=== PATIENT | male | born 1950 | race Caucasian/White ===

== ENCOUNTER 2024-09-25 12:32 | Emergency (ER) | payer MEDICARE, OTHER, SELFPAY ==
[2024-09-25 12:33] VITALS: BP 171/91
[2024-09-25 13:58] VITALS: BMI 31.8
[2024-09-25 14:10] LABS: Hematocrit 35.2 % (39.0-52.0); Hemoglobin 12.3 g/dL (13.0-18.0); Mean Corp Hgb Conc. 34.9 g/dL (33.0-37.0); Mean Corpuscular Volume 90.7 fL (80.0-94.0); Nucleated Red Blood Cells % 0 % (-); Platelet Count 142 10^3/uL (130-400); Red Cell Dist. Width 12.9 % (11.5-14.5)
[2024-09-25 14:16] LABS: ALT (SGPT) 23 U/L (0-50); AST (SGOT) 22 U/L (17-59); Albumin 4.4 g/dl (3.5-5.0); Alkaline Phosphatase 59 U/L (38-126); Blood Urea Nitrogen 24 mg/dl (9-20); Calcium 9.0 mg/dl (8.4-10.2); Carbon Dioxide 25 mmol/L (22-30); Chloride 106 mmol/L (98-107); Estimated Creatinine Clearance 81 ml/min; Glucose 109 mg/dl (70-99); Potassium 4.0 mmol/L (3.5-5.1); Sodium 137 mmol/L (135-145); Total Protein 6.9 g/dl (6.3-8.2); eGFR > 60.00
--- NOTE | 2024-09-25 15:37 | ED.GENMED ---
History of Present Illness
General
Chief Complaint: Abnormal Lab Value
Time Seen by Provider: 09/25/24 12:53
History of Present Illness
History of Present Illness:
74-year-old male with history of aortic aneurysm presenting to the emergency department for concern of abnormal carotid ultrasound. Patient had outpatient ultrasound completed of his carotids which showed noncalcified clot on the right side of the
carotid artery. Patient was instructed to immediately come to the hospital. He notes that the study was ordered because in June he had a routine eye exam which showed a left central retinal vein occlusion. Patient denies any visual changes. He
denies any neurologic symptoms, such as weakness or numbness to extremities. Denies chest pain or difficulty breathing.
Phy Exam
Physical Exam
Physical Exam:
General: Well-appearing, no clinical signs of dehydration
HEENT: protecting airway
Neck: appears supple
CV: Normal heart rate, regular rhythm, no evidence of cyanosis
Resp: No accessory muscle use, no increased work of breathing, lungs clear to auscultation bilaterally
Abd: No distention
Extremities: No deformities, no swelling
Neuro: alert, no focal neurologic deficit
: deferred
Rectal: deferred
Psych: Normal affect
Skin: Intact
Course
Orders/Labs/Results
Orders:
Orders
09/25/24 13:44
CT Head & Neck Angio W/wo IV Urgent
Comment:
Reason For Exam: outpt vascular US - abnormal clot on right
09/25/24 13:55
Complete Blood Count/With Diff Urgent
Comprehensive Metabolic Panel Urgent
Abnormal Lab Results
09/25/24
13:55
WBC 3.9 L 10^3/uL
(4.8-10.8)
RBC 3.88 L 10^6/uL
(4.70-6.10)
Hgb 12.3 L g/dL
(13.0-18.0)
Hct 35.2 L %
(39.0-52.0)
MCH 31.7 H pg
(27.0-31.0)
MPV 11.1 H fL
(7.4-10.4)
Absolute Lymphs (auto) 0.7 L 10^3/uL
(1.2-3.4)
Immature Gran % 0.8 H %
(0-0.5)
Lymphocytes % 19.0 L %
(20.5-51.1)
Monocytes % 10.8 H %
(1.7-9.3)
BUN 24 H mg/dl
(9-20)
Glucose 109 H mg/dl
(70-99)
Total Bilirubin 1.8 H mg/dl
(0.2-1.3)
09/25/24 13:55
09/25/24 13:55
Vital Signs
Initial and Last Documented VS:
Initial Vital Signs
Temp Pulse Resp BP Pulse Ox
98.1 F 61 18 171/91 100
09/25/24 12:33 09/25/24 12:33 09/25/24 12:33 09/25/24 12:33 09/25/24 12:33
Last Documented Vital Signs
Temp Pulse Resp BP Pulse Ox
98.1 F 50 12 171/91 100
09/25/24 12:33 09/25/24 16:15 09/25/24 16:00 09/25/24 12:33 09/25/24 16:15
MDM/Problems Addressed
MDM/Problems Addressed:
74-year-old male presenting to the emergency department with abnormal outpatient carotid ultrasound. Vital signs significant for high blood pressure.
On exam patient resting comfortably, no acute distress. Patient without any present acute complaints. Notes outpatient ultrasound of his thighs which showed a left central retinal vein occlusion. However patient without any ocular symptoms. He
arrives with report of ultrasound carotid bilateral, which shows no diagnostic evidence of 50% or greater stenosis, however there is mention of moderate noncalcified clot in the bulb and bifurcation on the right side with additional clot seen in the
proximal to mid common carotid artery. Patient was instructed to come to the hospital for further assessment. Did call and mention to vascular surgery, note that does not feel ultrasound of the carotids and finding of central retinal vein
occlusion is inconsistent. Given no acute symptoms, likely can follow-up as an outpatient. Plan for CT brain and neck to ensure no additional acute pathology
16:40 -CT without acute process, shows continued signs of stenosis to bilateral carotids, however less than 50%. CT result given to patient as well as CD of results with patient to follow-up with his doctor. Advised close outpatient follow-up with
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 Return precautions discussed and patient verbalized understanding
*Pulse Oximetry
SaO2: 97
Oxygen Mode of Delivery: Room air
Patient hypoxic: no
*Critical Care Note
Total Time (30-74mins, 75-104mins- exclusive of procedures): Not Applicable
ED Attending Note
-
Portions of this chart may have been created with voice recognition software.� Occasional wrong word or��sound alike� substitutions may have occurred due to the inherent limitations of voice recognition software.
Discharge Plan
Departure
Patient Disposition: Home (Routine Discharge)
Date of Disposition: 09/25/24
Time of Disposition: 16:45
Patient with high blood pressure during this ER visit?: No
Condition: Good
Discharge Problem:
Carotid artery stenosis
Prescriptions:
No Action
atorvastatin 20 mg Tablet
20 mg PO HS
amlodipine 2.5 mg Tablet
2.5 mg PO DAILY
aspirin 81 mg Tablet,Delayed Release (Dr/Ec)
81 mg PO HS
bisoprolol fumarate 5 mg Tablet
5 mg PO DAILY
olmesartan-hydrochlorothiazide 40-25 mg Tablet
1 tab PO DAILY
Referrals:
Hellen Lara DO [Family Provider, Internal Medicine]
Markel Jennings III, MD [Active, Vascular Surgery]
Activity Restrictions/Additional Instructions:
You were seen in the emergency department for abnormal outpatient imaging
You were found to have persistent evidence of stenosis to your carotids. Please follow-up with vascular surgery as well as her gambling floor supervisor
Please follow-up closely with your primary care physician.
Return to the emergency department for any worsening of your symptoms, or any development of chest pain, difficulty breathing, abdominal pain with persistent vomiting and inability to tolerate food or liquid by mouth (concern for dehydration),
weakness, headache or confusion, fever greater than 100.4, or any additional symptoms that are concerning to you.
Thank you for choosing [facility].
Interventions
Interventions:
*Risk Screen - Suicide Last Done: 09/25/24 12:33
*General Assessment Last Done: 09/25/24 13:58
*Neglect/Abuse Screening Last Done: 09/25/24 12:33
*ED- Fall Risk Assessment Last Done: 09/25/24 13:58
*ED COVID-19 Vaccine History Last Done: 09/25/24 13:58
Discharge Date and Time
Print Language: SINHALA
[2024-09-25 16:43] VITALS: BP 141/79
== END 2024-09-25 16:58 | disposition home or self-care (01) ==
LOC: EMR 12:32
PROVIDERS: EMERGENCY PHYSICIAN Student in an Organized Health Care Education/Training Program; FAMILY PHYSICIAN Internal Medicine
DX: I65.21 Occlusion and stenosis of right carotid artery (principal); R03.0 Elevated blood-pressure reading, without diagnosis of hypertension
CPT/HCPCS: 99284; 70496; 70498; 80053; 85025; Q9967